=== PATIENT | male | born 1970 | race Caucasian/White ===

== ENCOUNTER 2021-05-27 09:56 | Day surgery (SDC) | payer BC ==
[2021-05-18 12:15] LABS: PARTIAL THROMBOPLASTIN TIME 31 SECONDS (22-32)
[2021-05-18 12:16] LABS: ALANINE AMINOTRANSFERASE 52 U/L (12-78); ALBUMIN 3.2 G/DL (3.4-5.0); ALBUMIN/GLOBULIN RATIO 0.6 (1.1-1.5); ALKALINE PHOSPHATASE 180 IU/L (46-116); ANION GAP 6 (8-16); ASPARTATE AMINO TRANSFERASE 76 U/L (10-37); BILIRUBIN,TOTAL 2.3 MG/DL (0.1-1.0); BLOOD UREA NITROGEN 19 MG/DL (7-18); BUN/CREATININE RATIO 8.8 (5.4-32.0); CALCIUM 8.9 MG/DL (8.5-10.1); CHLORIDE 103 MMOL/L (99-107); CREATININE 2.16 MG/DL (0.60-1.10); GLUCOSE 91 MG/DL (70-104); POTASSIUM 4.1 MMOL/L (3.5-5.1); SODIUM 138 MMOL/L (135-145); TOTAL CARBON DIOXIDE 28.7 MMOL/L (24-32); TOTAL PROTEIN 8.6 G/DL (6.4-8.2); eGFR 32 ML/MIN
[2021-05-18 12:21] LABS: BASOPHILS # (AUTO) 0.1 X10'3 (0-0.2); BASOPHILS % (AUTO) 1.9 % (0-1); EOSINOPHILS # (AUTO) 0.3 X10'3 (0-0.9); EOSINOPHILS % (AUTO) 5.8 % (0-6); HEMATOCRIT 37.6 % (42.0-52.0); HEMOGLOBIN 13.1 g/dl (14.0-17.9); LYMPHOCYTES # (AUTO) 1.4 X10'3 (1.1-4.8); LYMPHOCYTES % (AUTO) 24.6 % (21-51); MEAN CORPUSCULAR HEMOGLOBIN 33.9 PG (27.0-31.0); MEAN CORPUSCULAR HGB CONC 34.9 g/dL (33.0-36.5); MEAN CORPUSCULAR VOLUME 97.2 FL (78-98); MEAN PLATELET VOLUME 9.1 FL (7.4-10.4); MONOCYTES # (AUTO) 0.5 X10'3 (0-0.9); MONOCYTES % (AUTO) 9.7 % (2-12); NEUTROPHILS # (AUTO) 3.3 X10'3 (1.8-7.7); PLATELET COUNT 139 X10'3 (140-440); RED BLOOD COUNT 3.87 X10'6 (4.70-6.10); RED CELL DISTRIBUTION WIDTH 14.3 % (11.5-14.5); WHITE BLOOD COUNT 5.7 X10'3 (4.5-11.0)
[2021-05-18 12:24] LABS: CLARITY,URINE SLIGHTLY CLOUDY (Clear); COLOR,URINE YELLOW (Yellow); GLUCOSE, URINE NEGATIVE (Neg); KETONES,URINE NEGATIVE (Neg); LEUKOCYTE ESTERASE ,URINE NEGATIVE (Neg); NITRITES, URINE NEGATIVE (Neg); OCCULT BLOOD,URINE LARGE (Neg); PH,URINE 6.5 (4.8-8.0); PROTEIN,URINE 30 mg/dl (Neg)
[2021-05-18 12:44] LABS: UA COLLECTION TYPE NON-SPECIFIED
[2021-05-18 12:46] LABS: BACTERIA,URINE FEW /HPF (Neg); WBC,URINE 0-4 /HPF (0-4)
[2021-05-18 12:47] LABS: SQUAMOUS EPITHELIAL CELL,UR NONE SEEN /LPF (FEW)
[2021-05-21 14:36] VITALS: BP 109/64
[2021-05-27] VITALS (15 sets, daily range): BP systolic 121–146; BP diastolic 78–94
[~2021-05-27] VITALS: Ht 180.3 cm; Wt 79.5 kg
[~2021-05-27 09:56] MED LIST: ATOR20TA12 PO; CYCL-1 PO; DICY10CA88 PO; FOLI0.4T6 PO; GABA300C PO; LANTUS SQ; LIDOcaine 1% 30ml preserv. free vial SQ ONE; LIDOcaine 1% w/epiNEPHrine 1:200,000 30ml vial SQ ONE; MAGN100T5 PO; MIDAZolam 1mg/ml 10ml vial IV ONE; NADO20TA PO; ONDA4TAB6 PO; PANT-47 PO; PROM12.512 PO; RIFA550T PO; SEMA1PEN3; SILD100T PO; TRAZ-256 PO; ZINC50TA67 PO; fentaNYL/PF 50MCG/1 ML 2ML syringe IV ONE; normal saline 1000ml 1,000 ML IV SCH; trintellix PO
[2021-05-27] MEDS ORDERED: MIDAZolam 1mg/ml 10ml vial IV ONE (10:25)
[2021-05-27] MEDS ORDERED: fentaNYL/PF 50MCG/1 ML 2ML syringe IV ONE (10:25)
[2021-05-27] MEDS ORDERED: LIDOcaine 1% 30ml preserv. free vial SQ STA (13:01)
[2021-05-27 15:01] LABS: HEMATOCRIT 35.4 % (42.0-52.0); MEAN CORPUSCULAR VOLUME 97.1 FL (78-98); MEAN PLATELET VOLUME 9.6 FL (7.4-10.4); PLATELET COUNT 124 X10'3 (140-440); RED BLOOD COUNT 3.65 X10'6 (4.70-6.10); RED CELL DISTRIBUTION WIDTH 14.2 % (11.5-14.5); WHITE BLOOD COUNT 6.2 X10'3 (4.5-11.0)
[2021-05-27 17:30] LABS: HEMATOCRIT 34.4 % (42.0-52.0); HEMOGLOBIN 11.6 g/dl (14.0-17.9); MEAN CORPUSCULAR HEMOGLOBIN 32.9 PG (27.0-31.0); MEAN CORPUSCULAR HGB CONC 33.8 g/dL (33.0-36.5); MEAN CORPUSCULAR VOLUME 97.5 FL (78-98); MEAN PLATELET VOLUME 9.6 FL (7.4-10.4); PLATELET COUNT 103 X10'3 (140-440); RED BLOOD COUNT 3.53 X10'6 (4.70-6.10); RED CELL DISTRIBUTION WIDTH 14.2 % (11.5-14.5); WHITE BLOOD COUNT 4.7 X10'3 (4.5-11.0)
--- NOTE | 2021-05-27 17:50 | NUR ---
Spoke with Dr. Mon via telephone to update on patients most recent lab results and condition. Per MD, pt to february d/c home. Patient and patients , Carol educated on signs and symptoms of bleeding. Pt able to urinate in toilet without difficuly/discomfort. Urine, clear, pale yellow, no redness/pink tinge noted. Dressing to left lower back, clean dry and intact.
== END 2021-05-27 18:00 | disposition home or self-care (01) ==
LOC: SSTAY O 09:56
PROVIDERS: ATTEND Internal Medicine Critical Care Medicine
DX: E11.22 Type 2 diabetes mellitus with diabetic chronic kidney disease (principal); N18.30 Chronic kidney disease, stage 3 unspecified; N02.8 Recurrent and persistent hematuria with other morphologic changes; N26.1 Atrophy of kidney (terminal); N26.9 Renal sclerosis, unspecified; J45.909 Unspecified asthma, uncomplicated; Z79.899 Other long term (current) drug therapy; Z79.01 Long term (current) use of anticoagulants; Z79.4 Long term (current) use of insulin; Z98.52 Vasectomy status
CPT/HCPCS: 36415; 50200; 76942; 80053; 81001; 82948; 85025; 85027; 85576; 85610; 85730; 86885; 86900; 86901; 86920; 87088

== ENCOUNTER 2023-08-25 05:18 | Day surgery (SDC) | payer BC ==
[2023-08-18 14:40] LABS: BASOPHILS % (AUTO) 1.7 % (0-1); EOSINOPHILS # (AUTO) 0.1 X10'3 (0-0.9); EOSINOPHILS % (AUTO) 3.8 % (0-6); LYMPHOCYTES # (AUTO) 0.7 X10'3 (1.1-4.8); LYMPHOCYTES % (AUTO) 24.9 % (21-51); MEAN PLATELET VOLUME 8.8 FL (7.4-10.4); MONOCYTES # (AUTO) 0.3 X10'3 (0-0.9); MONOCYTES % (AUTO) 11.5 % (2-12); NEUTROPHILS # (AUTO) 1.7 X10'3 (1.8-7.7); NEUTROPHILS % (AUTO) 58.1 % (42-75); PRE OP HEMOGLOBIN 13.6 g/dL (14.0-17.9); PRE OP PLATELET COUNT 105 X10'3 (140-440); RED BLOOD COUNT 4.37 X10'6 (4.70-6.10); RED CELL DISTRIBUTION WIDTH 14.3 % (11.5-14.5)
[2023-08-18 14:43] LABS: PRE OP WHITE BLOOD COUNT 2.9 10'3 (4.8-10.8)
[2023-08-18 14:45] LABS: BILIRUBIN,URINE NEGATIVE (Neg); CLARITY,URINE CLEAR (Clear); COLOR,URINE YELLOW (Yellow); GLUCOSE, URINE >=1000 mg/dl (Neg); KETONES,URINE NEGATIVE (Neg); LEUKOCYTE ESTERASE ,URINE NEGATIVE (Neg); NITRITES, URINE NEGATIVE (Neg); OCCULT BLOOD,URINE MODERATE (Neg); PROTEIN,URINE TRACE mg/dl (Neg); UROBILINOGEN,URINE 0.2 E.U/dL (0.2-1.0)
[2023-08-18 14:54] LABS: UA COLLECTION TYPE CLN CATCH MIDSTREAM
[2023-08-18 14:55] LABS: SQUAMOUS EPITHELIAL CELL,UR FEW /LPF (FEW)
[2023-08-18 14:56] LABS: BACTERIA,URINE NONE SEEN /HPF (Neg); WBC,URINE 0-4 /HPF (0-4)
[2023-08-18 15:07] LABS: TOTAL CELLS COUNTED 100
[2023-08-18 15:08] LABS: PLATELET ESTIMATE DECREASED
[2023-08-18 15:09] LABS: ANISOCYTOSIS 1+; TEAR DROP CELLS FEW
[2023-08-18 15:10] LABS: ALBUMIN 3.2 G/DL (3.4-5.0); ALBUMIN/GLOBULIN RATIO 0.8 (1.1-1.5); ALKALINE PHOSPHATASE 102 IU/L (46-116); BLOOD UREA NITROGEN 28 MG/DL (7-18); BUN/CREATININE RATIO 14.6 (10.0-20.0); CHLORIDE 105 MMOL/L (99-107); CREATININE 1.92 MG/DL (0.60-1.10); PRE OP ALT 49 U/L (30-65); PRE OP ANION GAP 4 (8-16); PRE OP AST 53 U/L (10-37); PRE OP BILIRUB, TOTAL 1.7 MG/DL (0.0-1.0); PRE OP GLUCOSE 173 MG/DL (70-104); PRE OP POTASSIUM 3.7 MMOL/L (3.4-5.1); PRE OP SODIUM 138 MMOL/L (135-145); TOTAL CARBON DIOXIDE 28.8 MMOL/L (24-32); TOTAL PROTEIN 7.3 G/DL (6.4-8.2); eGFR 37 ML/MIN
[~2023-08-25] VITALS: Ht 180.3 cm; Wt 69.9 kg
[2023-08-25] VITALS (7 sets, daily range): BP systolic 112–136; BP diastolic 69–76; PULSE 72–82; RESP 12–16; TEMP 98.9; O2SAT 95–100
[~2023-08-25 05:18] MED LIST changes: -ATOR20TA12 PO; -CYCL-1 PO; +DAPA10TA PO; -DICY10CA88 PO; -FOLI0.4T6 PO; -GABA300C PO; +LACT10SO78 PO; -LIDOcaine 1% 30ml preserv. free vial SQ ONE; -LIDOcaine 1% w/epiNEPHrine 1:200,000 30ml vial SQ ONE; -MAGN100T5 PO; -MIDAZolam 1mg/ml 10ml vial IV ONE; -NADO20TA PO; -ONDA4TAB6 PO; +ONDA8TAB13 PO; -PANT-47 PO; -PROM12.512 PO; -SEMA1PEN3; +SEMA1PEN3 SQ; -TRAZ-256 PO; +VORT20TA PO; +ZALE10CA PO; -ZINC50TA67 PO; -fentaNYL/PF 50MCG/1 ML 2ML syringe IV ONE; -normal saline 1000ml 1,000 ML IV SCH; +ringers solution, lacted 1,000 ML IV SCH; -trintellix PO
[2023-08-25] MEDS ORDERED: cefazolin 2gm/D5W 100mL 100 ML IV ONE (05:30)
[2023-08-25] MEDS ORDERED: famotidine 20mg tablet PO ONE (05:30)
[2023-08-25] MEDS ORDERED: tranexamic acid inj. 1,000 MG in normal saline IV soln 100ML IV ONE (05:30)
[2023-08-25] MEDS ORDERED: BUPIVAcaine 0.5% inj/PF 30 ML ONE (07:06)
[2023-08-25] MEDS ORDERED: cloNIDine hcl/PF 100mcg/ml inj ONE (07:11)
[2023-08-25] MEDS ORDERED: meperidine/PF 25mg/ml syringe IV PRN (07:15)
[2023-08-25] MEDS ORDERED: ondansetron/PF 4mg/2ml inj IV PRN (07:15)
[2023-08-25] MEDS ORDERED: fentaNYL/PF 50MCG/1 ML 2ML syringe IV PRN ×2 (07:15)
[2023-08-25] MEDS ORDERED: proCHLORperazine 10 MG/2 ml inj IV PRN (07:15)
[2023-08-25] MEDS ORDERED: ringers solution, lacted 1,000 ML IV SCH (07:15)
[2023-08-25] MEDS ORDERED: hydrALAZINE 20mg/ml inj. IV PRN (07:15)
[2023-08-25] MEDS ORDERED: labetalol 20mg/4ml (5mg/ml) syringe IV PRN (07:15)
[2023-08-25] MEDS ORDERED: HYDROmorphone/PF 0.2 MG/ML SYRINGE IV PRN ×2 (07:15)
[2023-08-25] MEDS ORDERED: fentaNYL/PF 50MCG/1 ML 2ML syringe ONE (07:17)
[2023-08-25] MEDS ORDERED: midazolam 1 mg/ML 2ml injection ONE (07:18)
[2023-08-25] MEDS ORDERED: glycopyrrolate 0.2mg/ml inj ONE (07:24)
[2023-08-25] MEDS ORDERED: neostigmine methylsulfate 1 MG/ML 10ml vial ONE (07:24)
[2023-08-25] MEDS ORDERED: sevoflurane 250ml liquid IH ONE (07:24)
[2023-08-25] MEDS ORDERED: LIDOcaine 2% (20mg/ml) 5ml vial ONE (07:56)
[2023-08-25] MEDS ORDERED: LIDOcaine 1%/PF 5ML 10 MG/ML VIAL ONE (07:56)
[2023-08-25] MEDS ORDERED: propofol inj 20 ML IV ONE (07:56)
[2023-08-25] MEDS ORDERED: rocuronium 10mg/ml inj IV ONE (07:56)
[2023-08-25] MEDS ORDERED: 0.9 % SODIUM CHLORIDE 10 ML VIAL ONE (07:56)
[2023-08-25] MEDS ORDERED: ROPIVAcaine 0.5% (5mg/ml) 30ml vial ONE (07:56)
[2023-08-25] MEDS ORDERED: ePHEDrine 50MG/ML INJ. ONE (07:56)
[2023-08-25] MEDS ORDERED: ondansetron/PF 4mg/2ml inj ONE (07:57)
[2023-08-25] MEDS ORDERED: dexamethasone sod phosphate 4mg/ml inj. ONE (07:57)
--- NOTE | 2023-08-25 09:06 | NUR ---
Received from OR via [facility], accompanied by Anesthesiologist DR FIGUEREDO and report given by Anesthesiolgist. PATIENT A&OX4, DENIES PAIN, V/S WNL, , PIV 20G R HAND, DRESSING SHOULDER WRAP TO LEFT SIDE CDI W/ SLING AND COLD POWDER PACK Addendum: 08/25/23 at 0693 by Melonie Cuevas RN Amended: Links added.
--- NOTE | 2023-08-25 09:06 | NUR ---
Received from OR via [facility] , accompanied by Anesthesiologist DR FIGUEREDO and report given by Anesthesiolgist. PATIENT A&OX4, DENIES PAIN, V/S WNL, PIV 20G R HAND, DRESSING SHOULDER WRAP TO RIGHT SIDE CDI W/ ONQ AT 2ML/HR AND COLD POWDER PACK
--- NOTE | 2023-08-25 09:56 | NUR ---
ALL DISCHARGE CRITERIA HAS BEEN MET. VSS,NO C/O PAIN, VOIDING AND ABLE TO SAFELY AMBULATE AND TRANSFER SELF. IV TAKEN OUT WITHOUT ANY COMPLICATIONS. ALL DISCHARGE INSTRUCTIONS COVERED WITH PATIENT AND ALL QUESTIONS ANSWERED. PATIENT TAKEN OUT VIA WHEELCHAIR TO PERSONAL VEHICLE WHERE FAMILY DROVE PATIENT HOME. Addendum: 08/25/23 at 1005 by Melonie Cuevas RN Amended: Links added.
--- NOTE | 2023-08-25 09:56 | NUR ---
ALL DISCHARGE CRITERIA HAS BEEN MET. VSS, NO C/O PAIN , VOIDING AND ABLE TO SAFELY AMBULATE AND TRANSFER SELF. IV TAKEN OUT WITHOUT ANY COMPLICATIONS. ALL DISCHARGE INSTRUCTIONS COVERED WITH PATIENT AND ALL QUESTIONS ANSWERED. PATIENT TAKEN OUT VIA WHEELCHAIR TO PERSONAL VEHICLE WHERE FAMILY DROVE PATIENT HOME. Addendum: 08/25/23 at 0956 by Melonie Cuevas RN Amended: Links added.
== END 2023-08-25 09:56 | disposition home or self-care (01) ==
LOC: PAS 05:18
PROVIDERS: ATTEND Specialist
DX: M75.42 Impingement syndrome of left shoulder (principal); M19.012 Primary osteoarthritis, left shoulder; E11.9 Type 2 diabetes mellitus without complications; G47.33 Obstructive sleep apnea (adult) (pediatric); J45.909 Unspecified asthma, uncomplicated; G89.18 Other acute postprocedural pain; Z98.890 Other specified postprocedural states; Z79.899 Other long term (current) drug therapy; Z91.011 Allergy to milk products
CPT/HCPCS: 29823; 36415; 64415; 71046; 80053; 81001; 82948; 85025; 87081; J0690; J0735; J1100; J2250; J2405; J2704; J2710; J2795; J3010; J3490; J7120; S0020; Z7506; Z7508; Z7512; 85007; A4565; A4618; A6449; A7000

== ENCOUNTER 2024-06-12 09:19 | Day surgery (SDC) | payer BC, OTHER ==
[2024-06-06 16:11] LABS: BASOPHILS % (AUTO) 1.1 % (0-1); EOSINOPHILS # (AUTO) 0.1 X10'3 (0-0.9); MEAN PLATELET VOLUME 9.1 FL (7.4-10.4); MONOCYTES # (AUTO) 0.4 X10'3 (0-0.9); PRE OP HEMATOCRIT 39.6 % (42.0-52.0); PRE OP WHITE BLOOD COUNT 3.2 10'3 (4.8-10.8)
[2024-06-06 16:12] LABS: EOSINOPHILS % (AUTO) 2.2 % (0-6); LYMPHOCYTES # (AUTO) 0.7 X10'3 (1.1-4.8); MEAN CORPUSCULAR HEMOGLOBIN 32.1 PG (27.0-31.0); MEAN CORPUSCULAR HGB CONC 33.4 g/dL (33.0-36.5); MEAN CORPUSCULAR VOLUME 96.1 FL (78-98); MONOCYTES % (AUTO) 13.3 % (2-12); NEUTROPHILS % (AUTO) 62.4 % (42-75); PRE OP HEMOGLOBIN 13.2 g/dL (14.0-17.9); RED BLOOD COUNT 4.12 X10'6 (4.70-6.10); RED CELL DISTRIBUTION WIDTH 14.7 % (11.5-14.5)
[2024-06-06 16:20] LABS: PRE OP PLATELET COUNT 99 X10'3 (140-440)
[2024-06-06 16:25] LABS: ALBUMIN/GLOBULIN RATIO 0.8 (1.1-1.5); ALKALINE PHOSPHATASE 136 IU/L (46-116); BLOOD UREA NITROGEN 26 MG/DL (7-18); BUN/CREATININE RATIO 14.7 (10.0-20.0); CALCIUM 8.8 MG/DL (8.5-10.1); CHLORIDE 107 MMOL/L (99-107); CREATININE 1.77 MG/DL (0.60-1.10); PRE OP ALT 64 U/L (30-65); PRE OP ANION GAP 7 (8-16); PRE OP AST 44 U/L (10-37); PRE OP BILIRUB, TOTAL 1.4 MG/DL (0.0-1.0); PRE OP GLUCOSE 142 MG/DL (70-104); PRE OP SODIUM 142 MMOL/L (135-145); TOTAL CARBON DIOXIDE 27.7 MMOL/L (24-32); TOTAL PROTEIN 6.7 G/DL (6.4-8.2); eGFR 40 ML/MIN
[2024-06-06 16:26] LABS: PRE OP INR 1.1 INR; PRE OP PROTIME 11.5 SECONDS (9.0-12.0)
[2024-06-06 16:30] LABS: PRE OP POTASSIUM 3.3 MMOL/L (3.4-5.1)
[~2024-06-12] VITALS: Ht 180.3 cm; Wt 74.1 kg
[2024-06-12] VITALS (19 sets, daily range): BP systolic 104–197; BP diastolic 62–125; PULSE 66–130; RESP 12–16; TEMP 98.5; O2SAT 94–97
[~2024-06-12 09:19] MED LIST changes: +INSU100V41 SQ; +ONDA-245 PO; -ONDA8TAB13 PO; -SEMA1PEN3 SQ; -ringers solution, lacted 1,000 ML IV SCH
[2024-06-12] MEDS: famotidine 20mg tablet PO ONE (10:12)
[2024-06-12] MEDS: cefazolin 2gm/D5W 100mL 100 ML IV ONE (10:12)
[2024-06-12] MEDS: ringers solution, lacted 1,000 ML IV SCH ×2 (10:12→13:14)
[2024-06-12] MEDS ORDERED: morphine 4 MG/ML inj SYRINge IV PRN (10:25)
[2024-06-12] MEDS ORDERED: proCHLORperazine 10 MG/2 ml inj IV PRN (10:25)
[2024-06-12] MEDS ORDERED: morphine 2 MG/ML inj. syringe IV PRN (10:25)
[2024-06-12] MEDS ORDERED: HYDROmorphone/PF 0.2 MG/ML SYRINGE IV PRN ×2 (10:25)
[2024-06-12] MEDS ORDERED: hydrALAZINE 20mg/ml inj. IV PRN (10:25)
[2024-06-12] MEDS ORDERED: meperidine/PF 25mg/ml syringe IV PRN (10:25)
[2024-06-12 10:36] LABS: ISTAT CREATININE 1.7 mg/dL (0.8-1.3); ISTAT HGB 13.3 g/dl (14.0-17.9); ISTAT IONIZED CALCIUM 1.24 mmol/L (1.03-1.32); ISTAT K 3.8 mmol/L (3.5-5.1); POC BUN/CREATININE RATIO 12.9 (5.4-32.0)
[2024-06-12] MEDS ORDERED: sevoflurane 250ml liquid IH ONE (11:07)
[2024-06-12] MEDS ORDERED: LIDOcaine 2% (20mg/ml) 5ml vial ONE (11:21)
[2024-06-12] MEDS ORDERED: rocuronium 10mg/ml inj IV ONE (11:21)
[2024-06-12] MEDS ORDERED: propofol inj 20 ML IV ONE (11:21)
[2024-06-12] MEDS ORDERED: ondansetron/PF 4mg/2ml inj ONE (11:22)
[2024-06-12] MEDS ORDERED: dexamethasone sod phosphate 4mg/ml inj. ONE (11:22)
[2024-06-12] MEDS ORDERED: glycopyrrolate 0.2mg/ml inj ONE (11:23)
[2024-06-12] MEDS ORDERED: neostigmine methylsulfate 1 MG/ML 10ml vial ONE (11:23)
[2024-06-12] MEDS ORDERED: acetaminophen 1,000mg/100ml IV 100 ML IV ONE (11:23)
[2024-06-12] MEDS ORDERED: midazolam 1 mg/ML 2ml injection ONE (11:25)
[2024-06-12] MEDS ORDERED: fentaNYL/PF 50MCG/1 ML 2ML syringe ONE (11:25)
[2024-06-12] MEDS: BUPIVAcaine 2.5mg/ml inj 50ml vial (contains preservative) ONE (11:50)
[2024-06-12] MEDS: LIDOcaine 1% 30ml preserv. free vial ONE (11:50)
[2024-06-12] MEDS: labetalol 20mg/4ml (5mg/ml) syringe IV PRN (12:46)
[2024-06-12] MEDS: acetaminophen 1,000mg/100ml IV 100 ML IV ONE (12:59)
[2024-06-12] MEDS: ondansetron/PF 4mg/2ml inj IV PRN (13:41)
[2024-06-12] MEDS: oxyCODONE IR 5mg (immed. release) tablet PO PRN (14:39)
[2024-06-12] MEDS: LidoCAINE 2% Topical Jelly 11mL syringe (UROJET) TOP STA (14:46)
== END 2024-06-12 15:42 | disposition home or self-care (01) ==
LOC: PAS 09:19
PROVIDERS: ATTEND Surgery
DX: K40.90 Unilateral inguinal hernia, without obstruction or gangrene, not specified as recurrent (principal); K42.9 Umbilical hernia without obstruction or gangrene; E11.22 Type 2 diabetes mellitus with diabetic chronic kidney disease; N18.30 Chronic kidney disease, stage 3 unspecified; J45.909 Unspecified asthma, uncomplicated; G47.33 Obstructive sleep apnea (adult) (pediatric); G43.909 Migraine, unspecified, not intractable, without status migrainosus; F41.9 Anxiety disorder, unspecified; I25.2 Old myocardial infarction; F17.220 Nicotine dependence, chewing tobacco, uncomplicated; Z79.4 Long term (current) use of insulin; Z79.899 Other long term (current) drug therapy; Z90.49 Acquired absence of other specified parts of digestive tract; Z98.890 Other specified postprocedural states; Z88.6 Allergy status to analgesic agent; Z88.8 Allergy status to other drugs, medicaments and biological substances; Z83.3 Family history of diabetes mellitus; Z82.61 Family history of arthritis; Z80.7 Family history of other malignant neoplasms of lymphoid, hematopoietic and related tissues
CPT/HCPCS: 49591; 49650; 80047; 80053; 82948; 85025; 85610; 85730; 93005; C1781; J0131; J0690; J1100; J2250; J2405; J2704; J2710; J3010; J3490; J7030; J7120; S2900; Z7506; Z7508; Z7512; A4215; A4314; A4615; A4618